=== PATIENT | male | born 1955 | race Caucasian/White ===

== ENCOUNTER 2017-10-05 02:49 | Emergency (ER) | payer SELFPAY ==
[~2017-10-05] VITALS: Ht 188 cm; Wt 70.3 kg
[2017-10-05 02:53] VITALS: Ht 188 cm; Wt 70.3 kg
[2017-10-05 03:46] LABS: BASOPHILS 0.2 % (0-2); EOSINOPHILS 1.4 % (0-7); HEMATOCRIT 41.2 % (42.0-54.0); HEMOGLOBIN 13.7 g/dL (13.5-17.5); IMMATURE GRANULOCYTES 0.1 % (0-5); MCH 30.6 pg (26.0-34.0); MCHC 33.3 g/dL (31.0-37.0); MEAN PLATELET VOLUME 9.6 fL (7.4-10.4); MONOCYTES 9.3 % (2-11); PLATELET COUNT 192 10x3/uL (130-400); RBC 4.48 10x6/uL (4.20-6.10); RDW 13.4 % (11.5-14.5)
[2017-10-05 03:57] LABS: ALBUMIN 3.7 g/dL (3.4-5.0); ALKALINE PHOSPHATASE 75 U/L (46-116); ALT (SGPT) 63 U/L (10-68); BILIRUBIN - TOTAL 0.25 mg/dL (0.2-1.3); CALC OSMOLALITY 294 mosm/kg (275-300); CALCIUM 8.9 mg/dL (8.5-10.1); CARBON DIOXIDE 30.5 mmol/L (21.0-32.0); CHLORIDE - SERUM 110 mmol/L (98-107); CREATININE - SERUM 1.2 mg/dL (0.6-1.3); GLUCOSE 95 mg/dL (74-106); POTASSIUM - SERUM 3.5 mmol/L (3.5-5.1); PROTEIN - SERUM 6.5 g/dL (6.4-8.2); SODIUM 146 mmol/L (136-145); UREA NITROGEN 23 mg/dL (7-18); eGFR NON AFRICAN AMERICAN 66 mL/min (90-120)
[2017-10-05 04:18] LABS: LIPASE 148 U/L (73-393); PRO BNP 121 pg/mL (0-125); TROPONIN-I < 0.017 ng/mL (0.000-0.060)
[2017-10-05 04:20] LABS: CREATINE KINASE 1447 UL (21-232)
[2017-10-05 05:54] VITALS: BP 106/72
[2017-10-08 17:45] VITALS: Ht 188 cm; Wt 70.3 kg
== END 2017-10-05 06:27 | disposition home or self-care (01) ==
LOC: D.ER 02:49
PROVIDERS: Family Medicine
DX: R07.89 Other chest pain (principal)

== ENCOUNTER 2017-10-08 04:57 | Observation (INO) | payer MEDICAID ==
[~2017-10-08] VITALS: Ht 188 cm; Wt 68.2 kg
[2017-10-08] VITALS (11 sets, daily range): BP systolic 85–135; BP diastolic 53–88; Ht 188 cm; Wt 68.2 kg
--- NOTE | ~2017-10-08 | CN ---
PATIENT NAME:RONNY KOROMA MEDICAL RECORD: [id number] : 59 LOCATION:[facility] [place].[address]102 ADMIT DATE: 10/08/17 ACCOUNT: [id number] CONSULTING PHYSICIAN: CHULA AGUILLON MD REFERRING PHYSICIAN: DEE GOMEZ MD DATE OF CONSULTATION: 10/08/2017 PSYCHIATRIC CONSULTATION IDENTIFYING DATA: The patient is 62 years old and he is admitted to the hospital on an involuntary basis. CHIEF COMPLAINT: Shortness of breath and psychosis. HISTORY OF PRESENT ILLNESS: The patient presented to the Emergency Room this morning with respiratory distress and was found to have a right lower lobe pneumonia. He has been admitted to the hospital to treat this pneumonia, which should be a fairly routine treatment of the condition. In addition to this, the patient is clearly psychiatrically ill and for that reason, I was consulted. The patient has a long history of bipolar disorder. He was talking very loudly in a disorganized manic way. He has been actively hallucinating insects in the room, seeing bugs on the floor, and then very upset that they are on his skin and then pulling at his mouth and tongue and saying that they are in his mouth. He has been calmed a little with some IV Ativan, but he continues to be very disorganized and delusional. With some difficulty, I was able to obtain history from him and it turns out that he does have a long history of mental illness, has been treated with lithium and Depakote in the past, but he did not like either one of them. He has not been to his outpatient psychiatric appointments in some time. He is not sleeping and behaving erratically according to his son and this has been escalating. MENTAL STATUS EXAMINATION: The patient is awake, alert and oriented to person, place and somewhat to time and situation. His mood is anxious. His affect is constricted. Thought processes are disorganized. He denies that he would actively seek to harm himself or others. He denies hallucinatory experiences or delusions, although he is observed having them. ASSESSMENT: 1. Bipolar disorder, manic. 2. Right lower lobe pneumonia. PLAN: At this time, the patient is being admitted to the hospital to care for his pneumonia. I have ordered p.r.n. Haldol and Ativan for him. In addition to this, I am going to give him a scheduled dose of lithium as well as Geodon and Klonopin to assist with the manic behaviors. His long-term prognosis is guarded. Supportive and educational interventions were made. I anticipate that he will almost certainly need to be transferred to inpatient psychiatric care once the pneumonia is successfully treated. TRANSINT:[id number] Voice Confirmation ID: [id number] DOCUMENT ID: [id number] CONSULT REPORT [id number] RONNY KOROMA PETER MD at 1450 CC: [id number] DICTATION DATE: 10/08/17 1023 ED TEACHER: 10/08/17 1054 ADM IN [facility] [address] [id number]
[2017-10-08] MEDS ORDERED: ASPIRIN81 MG PO (05:14)
[2017-10-08] MEDS ORDERED: PLAVIX75 MG (05:14)
[2017-10-08] MEDS ORDERED: ZOCOR5 MG (05:15)
[2017-10-08] MEDS ORDERED: KLONOPIN1 MG PO (05:15)
[2017-10-08 05:46] LABS: BASOPHILS 0.2 % (0-2); EOSINOPHILS 0.3 % (0-7); HEMATOCRIT 40.7 % (42.0-54.0); HEMOGLOBIN 14.1 g/dL (13.5-17.5); IMMATURE GRANULOCYTES 0.2 % (0-5); MCH 31.1 pg (26.0-34.0); MCHC 34.6 g/dL (31.0-37.0); MCV 89.6 fL (80.0-100.0); MEAN PLATELET VOLUME 9.7 fL (7.4-10.4); NEUTROPHILS 79.3 % (40-80); RBC 4.54 10x6/uL (4.20-6.10); RDW 13.3 % (11.5-14.5); WBC 12.6 10x3/uL (4.8-10.8)
[2017-10-08 05:53] LABS: UDS - AMPHET NEGATIVE QUAL (NEGATIVE); UDS - BARB NEGATIVE QUAL (NEGATIVE); UDS - BENZO NEGATIVE QUAL (NEGATIVE); UDS - COCAINE NEGATIVE QUAL (NEGATIVE); UDS - OPIATE NEGATIVE QUAL (NEGATIVE); UDS - PCP NEGATIVE QUAL (NEGATIVE); UDS - THC NEGATIVE QUAL (NEGATIVE)
[2017-10-08 05:55] LABS: PLATELET COUNT 235 10x3/uL (130-400)
[2017-10-08 06:20] LABS: CALC OSMOLALITY 277 mosm/kg (275-300); CALCIUM 8.6 mg/dL (8.5-10.1); CARBON DIOXIDE 26.6 mmol/L (21.0-32.0); CHLORIDE - SERUM 101 mmol/L (98-107); CREATININE - SERUM 0.9 mg/dL (0.6-1.3); GLUCOSE 126 mg/dL (74-106); MAGNESIUM - SERUM 1.9 mg/dL (1.8-2.4); POTASSIUM - SERUM 3.6 mmol/L (3.5-5.1); SODIUM 137 mmol/L (136-145); THYROID STIMULATING HORMONE 4.89 uIU/mL (0.36-3.74); UREA NITROGEN 18 mg/dL (7-18); eGFR NON AFRICAN AMERICAN > 90 mL/min (90-120)
[2017-10-08 08:03] LABS: CKMB 89.8 U/L (0.0-3.6)
[2017-10-08 08:04] LABS: CREATINE KINASE 3350 UL (21-232); TROPONIN-I < 0.017 ng/mL (0.000-0.060)
[2017-10-08 13:48] LABS: CKMB 57.1 U/L (0.0-3.6); CREATINE KINASE 2141 UL (21-232); TROPONIN-I < 0.017 ng/mL (0.000-0.060)
[2017-10-08 20:09] LABS: CREATINE KINASE 1933 UL (21-232); TROPONIN-I < 0.017 ng/mL (0.000-0.060)
[2017-10-09 04:24] LABS: BASOPHILS 0.3 % (0-2); EOSINOPHILS 1.1 % (0-7); HEMATOCRIT 38.8 % (42.0-54.0); HEMOGLOBIN 13.3 g/dL (13.5-17.5); IMMATURE GRANULOCYTES 0.1 % (0-5); LYMPHOCYTES 18.7 % (15-50); MCH 30.8 pg (26.0-34.0); MCHC 34.3 g/dL (31.0-37.0); MCV 89.8 fL (80.0-100.0); MEAN PLATELET VOLUME 9.3 fL (7.4-10.4); MONOCYTES 8.2 % (2-11); NEUTROPHILS 71.6 % (40-80); RBC 4.32 10x6/uL (4.20-6.10); RDW 13.4 % (11.5-14.5)
[2017-10-09 04:27] LABS: PLATELET COUNT 186 10x3/uL (130-400); WBC 7.9 10x3/uL (4.8-10.8)
[2017-10-09 05:09] LABS: CALC OSMOLALITY 285 mosm/kg (275-300); CALCIUM 8.3 mg/dL (8.5-10.1); CARBON DIOXIDE 29.1 mmol/L (21.0-32.0); CHLORIDE - SERUM 107 mmol/L (98-107); CREATINE KINASE 1304 UL (21-232); CREATININE - SERUM 0.9 mg/dL (0.6-1.3); GLUCOSE 135 mg/dL (74-106); MAGNESIUM - SERUM 2.1 mg/dL (1.8-2.4); POTASSIUM - SERUM 3.7 mmol/L (3.5-5.1); SODIUM 142 mmol/L (136-145); UREA NITROGEN 16 mg/dL (7-18); eGFR NON AFRICAN AMERICAN > 90 mL/min (90-120)
[2017-10-09 05:10] LABS: CKMB 24.2 U/L (0.0-3.6)
[2017-10-09 11:55] VITALS: BP 125/85
[2017-10-09 15:39] VITALS: BP 135/94
[2017-10-09 20:31] VITALS: BP 104/58
== END 2017-10-10 01:06 | disposition short-term general hospital (02) ==
LOC: D.ER 04:57 → D.EDHOLD 07:17 → D.M2 07:17 → D.EDHOLD 07:17 → OBSVTIME 07:18 → D.M2 15:34
PROVIDERS: Family Medicine; Internal Medicine Nephrology
DX: J18.9 Pneumonia, unspecified organism (principal); F31.10 Bipolar disorder, current episode manic without psychotic features, unspecified; E78.5 Hyperlipidemia, unspecified; I25.10 Atherosclerotic heart disease of native coronary artery without angina pectoris; Z95.5 Presence of coronary angioplasty implant and graft; F17.203 Nicotine dependence unspecified, with withdrawal